=== PATIENT | female | born 1950 | race Two or more races ===

== ENCOUNTER 2017-05-27 13:49 | Outpatient (CLI) | payer OTHER ==
[~2017-05-27 13:49] MED LIST: DIOVAN40 MG PO; LIPITOR20 MG PO; NAPROXEN500 MG PO
== END 2017-05-27 13:57 | disposition home or self-care (01) ==
LOC: SONOGRAMA 13:49
DX: N80.9 Endometriosis, unspecified (principal); N83.00 Follicular cyst of ovary, unspecified side; N80.8 Other endometriosis; D25.9 Leiomyoma of uterus, unspecified

== ENCOUNTER 2017-05-27 14:45 | Outpatient (CLI) | payer OTHER | END 2017-05-27 14:48 | disposition home or self-care (01) | LOC: NUCLEAR 14:45 | DX: M81.0 Age-related osteoporosis without current pathological fracture (principal); Z13.820 Encounter for screening for osteoporosis; N63 Unspecified lump in breast; N64.4 Mastodynia; N80.8 Other endometriosis; N83.00 Follicular cyst of ovary, unspecified side; D25.9 Leiomyoma of uterus, unspecified ==

== ENCOUNTER 2020-05-03 10:54 | Outpatient (CLI) | payer OTHER | END 2020-05-03 10:59 | disposition home or self-care (01) | LOC: LAB 10:54 | PROVIDERS: ATTEND Urology | DX: N30.00 Acute cystitis without hematuria (principal) ==

== ENCOUNTER 2021-08-23 08:53 | Emergency (ER) | payer OTHER ==
[~2021-08-23] VITALS: Ht 170.2 cm; Wt 67.1 kg
[2021-08-23] MEDS ORDERED: [UNRECOGNIZED DRUG - OTHER] (09:02)
[2021-08-23] MEDS ORDERED: KETO10TA2 PO (14:11)
[2021-08-23] MEDS ORDERED: DUI500 PO (14:11)
== END 2021-08-23 14:22 | disposition home or self-care (01) ==
LOC: ER 08:53
DX: R22.1 Localized swelling, mass and lump, neck (principal); Z20.822 Contact with and (suspected) exposure to COVID-19